=== PATIENT | female | born 2000 | race Hispanic/Latino ===

== ENCOUNTER 2024-02-16 11:04 | Inpatient (IN) | payer MEDICAID, OTHER, SELFPAY ==
[~2024-02-16 11:04] MED LIST: Bupivacaine 0.25% HCL 30 ML VIAL ONE
[2024-02-16 12:08] VITALS: BMI 31.8
[2024-02-16] MEDS ORDERED: Lidocaine 1% (PF) 30 ML VIAL SC PRN (12:25)
[2024-02-16] MEDS ORDERED: Methylergonovine 0.2 MG/ML VIAL IM PRN (12:25)
[2024-02-16] MEDS ORDERED: Promethazine HCl 25 MG/ML VIAL IM PRN ×3 (12:25→20:33)
[2024-02-16] MEDS ORDERED: HYDROcodone/Acetaminophen 5/325 mg Tablet PO PRN (12:25)
[2024-02-16] MEDS ORDERED: Ondansetron PF 4 MG/2 ML Vial IVP PRN ×3 (12:25→20:33)
[2024-02-16] MEDS ORDERED: Carboprost 250 MCG/ML AMP IM PRN (12:25)
[2024-02-16] MEDS ORDERED: Diphenoxylate HCl/Atropine Tablet PO PRN (12:25)
[2024-02-16] MEDS ORDERED: Tranexamic Acid 1,000 MG/10 ML VIAL IVP PRN (12:25)
[2024-02-16] MEDS ORDERED: hydrALAZINE 20 MG/ML VIAL SLOW IVP PRN ×2 (12:25→20:33)
[2024-02-16] MEDS ORDERED: fentaNYL 50 mcg/mL 1 mL Vial SLOW IVP PRN (12:25)
[2024-02-16] MEDS ORDERED: Misoprostol 200 MCG TAB PR PRN (12:25)
[2024-02-16] MEDS ORDERED: Lactated Ringer's 1,000 ML IV SCH (12:30)
[2024-02-16] MEDS ORDERED: Oxytocin 30 units/NS 500 ML 500 ML IV SCH ×3 (12:30→20:33)
[2024-02-16 12:37] LABS: Hematocrit 39.2 % (34.9-44.5); Hemoglobin 13.3 g/dL (12.0-15.5); Mean Corpuscular HGB CONC 33.9 g/dL (32.0-36.0); Mean Corpuscular Volume 94.2 fL (81.6-98.3); Mean Platelet Volume 9.9 fL (7.4-10.4); Platelet Count 221 10x3/uL (150-450); RBC Distribution Width 12.3 % (11.5-14.5); Red Blood Cell (RBC) Count 4.16 10x6/uL (3.90-5.03); White Blood Cell (WBC) Count 9.4 10x3/uL (3.5-10.5)
[2024-02-16 13:05] LABS: Syphilis Antibody Nonreactive (Nonreactive); Syphilis Antibody Index 0.04 S/CO (<1.00 Non-Reactive)
[2024-02-16 13:06] LABS: HBsAg Index 0.17 S/CO (0-0.99); Hep B Surf Ag - L&D Non-Reactive S/CO (NonReactive)
[2024-02-16] MEDS: Oxytocin 30 units/NS 500 ML 500 ML IV SCH (13:37)
[2024-02-16] MEDS ORDERED: Moisturizing Cream (Eucerin) 113 GM JAR TOP PRN (15:08)
[2024-02-16] MEDS ORDERED: diphenhydrAMINE 50 MG/ML VIAL IVP PRN (15:08)
[2024-02-16] MEDS ORDERED: ePHEDrine Sulfate 50 MG/10 ML VIAL SLOW IVP PRN (15:08)
[2024-02-16] MEDS ORDERED: Naloxone HCl 0.4 mg/ml Vial IVP PRN ×2 (15:08)
[2024-02-16] MEDS ORDERED: Acetaminophen 325 MG TAB PO PRN (15:08)
[2024-02-16] MEDS ORDERED: Lactated Ringer's 500 ML IV PRN (15:08)
[2024-02-16] MEDS ORDERED: Communication Order-Pharmacy FS SCH (15:15)
[2024-02-16] MEDS: fentaNYL 2 mcg/Ropivacaine 0.2% Epidural 100 ML CADD EPIDURAL SCH (15:31)
[2024-02-16] MEDS: Acetaminophen 500 MG TAB PO PRN (19:13)
[2024-02-16] MEDS ORDERED: Lanolin Ointment 7 GM TUBE TOP PRN (20:33)
[2024-02-16] MEDS ORDERED: Benzocaine-Menthol 82.5 ML CAN TOP PRN (20:33)
[2024-02-16] MEDS ORDERED: Preparation H Ointment 28 GM TUBE PR PRN (20:33)
[2024-02-16] MEDS ORDERED: Bisacodyl 10 MG SUPP PR PRN (20:33)
[2024-02-16] MEDS ORDERED: diphenhydrAMINE 25 MG CAP PO PRN (20:33)
[2024-02-16] MEDS ORDERED: Milk Of Magnesia 30 ML UDCUP PO PRN (20:33)
[2024-02-16] MEDS: fentaNYL/Ropivacaine Epidural 0 ML ONE (20:36)
[2024-02-16] MEDS: Ferrous Sulfate 325 MG TAB PO SCH (21:00)
[2024-02-16] MEDS: Docusate 100 MG CAP PO SCH (21:01)
[2024-02-17] MEDS: Boostrix 0.5 ML (Tdap) VIAL (>/=7 yrs of age) IM ONE (00:26)
[2024-02-17] MEDS: Ferrous Sulfate 325 MG TAB PO SCH (07:31)
[2024-02-17] MEDS: HYDROcodone/Acetaminophen 5/325 mg Tablet PO PRN (07:53)
[2024-02-17] MEDS: Prenatal Vitamin 1 TAB PO SCH (07:53)
[2024-02-17 11:34] VITALS: BP 106/66; TEMP 98.2
== END 2024-02-17 18:00 | disposition home or self-care (01) | DRG 807 ==
LOC: CSHLD/OP 11:04 → CSHLD 12:10 → CSHPP 19:20
PROVIDERS: ADMIT Family Medicine; ATTEND Family Medicine
PROC: 10E0XZZ Delivery of Products of Conception, External Approach (ICD-10-PCS; principal; 2024-02-16)
DX: O80 Encounter for full-term uncomplicated delivery (principal); Z37.0 Single live birth; Z3A.38 38 weeks gestation of pregnancy
CPT/HCPCS: 36415; 51702; 85027; 86780; 86850; 86900; 86901; 87340; 99285; J0665; J2590